=== PATIENT | female | born 1975 | race Caucasian/White ===

== ENCOUNTER 2020-03-04 12:14 | Emergency (ER) | payer OTHER ==
[~2020-03-04] VITALS: Ht 162.6 cm; Wt 70.3 kg
[2020-03-04 12:30] VITALS: BP 167/89
[2020-03-04] MEDS ORDERED: IBUPROFEN600 M1 ORAL (13:07)
[2020-03-04 13:15] VITALS: BP 155/88
--- NOTE | 2020-03-04 13:32 | Emergency Room Report ---
History of Present Illness General Chief Complaint: Pain Source: Patient Present Illness HPI Disclaimer: Please note that this report is being documented using [employer] technology. This can lead to erroneous entry secondary to incorrect interpretation by the dictating instrument. HPI: 44-year-old female presents for left hand pain. She states is been present for 1 year. She injured her hand while doing laundry 1 year ago. Since that time she is had intermittent fourth digit pain worse with movement and palpation. Denies fevers nausea or vomiting. Denies any recent trauma. PMH: Diabetes PSH: Reviewed Social Hx: Patient denies smoking drinking or illicit drug use Allergies: Coded Allergies: No Known Allergies (Unverified , 03/04/20) COVID-19 Screening Contact w/high risk pt: No Experienced COVID-19 symptoms?: No COVID-19 Testing performed [employer]: No Patient History Reviewed Nursing Documentation: PMH: Agreed; PSxH: Agreed Nursing Documentation-PMH Hx Diabetes: Yes - type1 Review of Systems All Other Systems: negative except mentioned in HPI Physical Exam Vital Signs Date Time Temp Pulse Resp B/P (MAP) Pulse Ox O2 Delivery O2 Flow Rate FiO2 03/04/20 12:23 98.8 98 19 167/89 (115) 97 Room Air Sp02 EP Interpretation: reviewed, normal General Appearance: well appearing, no apparent distress Head: normocephalic, atraumatic Eyes: bilateral eye PERRL, bilateral eye EOMI ENT: hearing grossly normal, moist mucus membranes Neck: full range of motion, supple Respiratory: lungs clear, normal breath sounds, no rhonchi, no respiratory distress, no retraction, no wheezing Cardiovascular #1: normal peripheral pulses, regular rate, rhythm, no murmur Gastrointestinal: non tender, soft, non-distended, no guarding Musculoskeletal: other - Left hand nontender to palpation no erythema full range of motion of all digits. Neurologic: alert, oriented x3, no focal defects Skin: normal color, warm/dry Medical Decision Making Diagnostic Impression: Primary Impression: Sprain, finger ER Course Differential diagnosis included but not limited to sprain, arthritis, arthralgias, less likely deep space infection or fracture or dislocation. X- ray completed and showed no evidence of fracture or dislocation. Patient discharged with anti-inflammatories as needed with instructions to rest and ice the area as needed. Follow-up with PMD. Other X-Ray Diagnostic Results Other X-Ray Diagnostic Results : X-Ray ordered: Left hand # of Views/Limited Vs Complete: 3 View Indication: Pain Interpretation: no dislocation, no fractures Impression: No acute disease Electronically Signed by: Yury Hernandez MD Last Vital Signs Date Time Temp Pulse Resp B/P (MAP) Pulse Ox O2 Delivery O2 Flow Rate FiO2 03/04/20 13:15 98.7 72 15 155/88 100 Room Air Disposition: HOME, SELF-CARE Condition: Stable Scripts Ibuprofen* (MOTRIN*) 600 Mg Tablet 600 MG ORAL Q8H PRN for FOR PAIN, #20 TAB 0 Refills Prov: Yury Hernandez M.D. 03/04/20 Patient Instructions: Finger Sprain, [id number] Additional Instructions: Patient is instructed to follow-up with her primary care doctor, primary care clinic or [facility] in 1 to 2 days. Patient instructed to return for any worsening symptoms or concerns. Disclaimer: Please note that this report is being documented using [employer] technology. This can lead to erroneous entry secondary to incorrect interpretation by the dictating instrument. Yury Hernandez M.D. Mar 04, 2020 13:32
--- NOTE | 2020-03-04 15:37 | Diagnostic Imaging Report ---
Indication: Left hand pain Technique: 3 views left hand Comparison: none Findings: No acute fractures. No dislocations. Slight irregularity of the base of the fifth proximal phalanx. There are mild degenerative changes of the distal interphalangeal joint Impression: No acute process
== END 2020-03-04 13:15 | disposition home or self-care (01) ==
LOC: EMR 13:05
DX: S63.637A Sprain of interphalangeal joint of left little finger, initial encounter (principal); X58.XXXA Exposure to other specified factors, initial encounter; Y93.E2 Activity, laundry; Y92.9 Unspecified place or not applicable; E10.9 Type 1 diabetes mellitus without complications
CPT/HCPCS: 73130; Z7502; 99283